=== PATIENT | female | born 1935 | race Caucasian/White ===

== ENCOUNTER → 2017-03-09 | Outpatient (CLI) | payer MEDICARE, OTHER ==
[~2017-03-09] MED LIST: ASPI-558 PO; ATEN-39 PO; CALC-586 PO; CLOP75TA19 PO; GLUC1TAB38 PO; MULT-806 PO; NIFE60TA10 PO; OXYCODONE; SIMV20TA89 PO; TRAM-277 PO
[2017-03-09 18:27] LABS: BASOPHILS # (AUTO) 0.1 T/MM3 (0-0.2); BASOPHILS % (AUTO) 0.4 % (0-2); EOSINOPHILS % (AUTO) 0.3 % (0-4); HCT - HEMATOCRIT 41.8 % (36-46); IMMATURE GRANULOCYTE # (AUTO) 0.05 T/MM3 (0.00-0.03); IMMATURE GRANULOCYTE % (AUTO) 0.4 % (0.0-0.5); LYMPHOCYTES % (AUTO) 14.2 % (23-45); MEAN CORPUSCULAR HGB CONC(MCHC 33.5 GM/DL (31-37); MEAN CORPUSCULAR VOLUME 92.7 UM3 (80-100); MEAN PLATELET VOLUME 9.9 UM3 (9.4-12.4); MONOCYTES # (AUTO) 1.7 T/MM3 (0-0.8); NEUTROPHILS #(AUTO)-ABSOLUTE 10.1 T/MM3 (1.8-7.7); NEUTROPHILS % (AUTO) 72.7 % (33-66); RED BLOOD COUNT 4.51 M/MM3 (4.00-5.20); WBC - WHITE BLOOD COUNT 13.9 T/MM3 (4.5-11.0)
--- NOTE | 2017-03-10 08:25 | DI ---
INDICATION: ITS.REASON: Acute URI, J06.9 PROCEDURE: CHEST 2-VIEWS UPRIGHT (PA \T\ LAT) Encounter: Initial COMPARISON: August 30, 2016 FINDINGS: Left IJ central venous port catheter remains in place. Increasing perihilar opacities, greater on the right. No lobar consolidation. No pleural effusion or pneumothorax. Heart size and mediastinal contours are stable. Tortuous thoracic aorta. Pulmonary vascularity appears normal. Impression: Increasing perihilar prominence could relate to an atypical or viral pneumonia. .
== END ==
LOC: IMA 18:02
PROVIDERS: ATTEND Family Medicine
DX: J06.9 Acute upper respiratory infection, unspecified (principal); R91.8 Other nonspecific abnormal finding of lung field
CPT/HCPCS: 36415; 85025